=== PATIENT | female | born 1970 | race Caucasian/White ===

== ENCOUNTER 2024-09-02 09:19 | Outpatient (CLI) | payer BC | END 2024-09-02 09:20 | disposition home or self-care (01) | LOC: CSHSLEEP 09:19 | PROVIDERS: ATTEND Internal Medicine | DX: G47.33 Obstructive sleep apnea (adult) (pediatric) (principal); E11.9 Type 2 diabetes mellitus without complications; E66.9 Obesity, unspecified; Z68.27 Body mass index [BMI] 27.0-27.9, adult; I10 Essential (primary) hypertension; G25.89 Other specified extrapyramidal and movement disorders | CPT/HCPCS: 95811 ==

== ENCOUNTER 2024-09-17 09:07 | Outpatient (CLI) | payer BC | END 2024-09-17 09:08 | disposition home or self-care (01) | LOC: CSHSLEEP 09:07 | PROVIDERS: ATTEND Internal Medicine | DX: G47.33 Obstructive sleep apnea (adult) (pediatric) (principal); E11.9 Type 2 diabetes mellitus without complications; E66.9 Obesity, unspecified; Z68.27 Body mass index [BMI] 27.0-27.9, adult; I10 Essential (primary) hypertension | CPT/HCPCS: 95811 ==